=== PATIENT | female | born 1950 | race Caucasian/White ===

== ENCOUNTER 2023-11-11 19:56 | Emergency (ER) | payer OTHER, SELFPAY ==
[2023-11-11 19:57] VITALS: BP 192/117; BMI 29.3
[2023-11-11 21:29] VITALS: BP 146/83
--- NOTE | 2023-11-11 22:35 | ED.GENMED ---
History of Present Illness
General
Chief Complaint: Fall
Source: patient
Time Seen by Provider: 11/11/23 22:12
Travel History
Have you had any contact with someone who has COVID-19?: No
Do you have any symptoms of coronavirus? Fever > 100 degrees, chills, cough, shortness of breath, sore throat, loss of taste or smell, muscle aches, or headache?: No
History of Present Illness
History of Present Illness:
73-year-old female presents to the emergency room for evaluation after suffering a fall. Patient was at a car dealership when she tripped over a step. She fell forward and struck her left face on the trunk of a car. No loss of conscious. No neck
pain. Patient has a skin injury to the left cheek which was bleeding but this was controlled with pressure. She denies any significant headache, nausea, focal weakness numbness or tingling.
Past History
Past History
ED Past Medical History: CAD, Cancer (Breast), HTN, Hypercholesterolemia, NIDDM, Valvular disease, Psychiatric (Depression) and Other (Sciatic, )
ED Past Surgical History: Cardiac (cardiac bypass, Aortic valve replaced, ), Gynecological (Hysterectomy), Orthopedic (Left bunionectomy. left wrist cyst removed, Left shoulder surgery) and Other (cataracts, Right Mastectomy)
Social History
Tobacco: Non-smoker
Alcohol: Occasional
Personal:
Living: with family
Phy Exam
Physical Exam
Physical Exam:
General: Awake, Alert, Oriented X3. No acute distress.
Vitals: unremarkable
Head: Abrasion left cheek with mild surrounding swelling
Eyes: Pupils equal, EOMI
Throat: Airway intact, no exudates
Neck: Trachea midline
Lungs: Clear and equal b/l
Heart: Regular rate, no murmurs
Abd: Soft, Nontender, No pulsatile mass
Neuro: Cranial nerves intact, muscle strength equal bilaterally
Skin: Warm, dry, no rash
Extremities: pulses equal b/l, no edema
Course
Orders/Labs/Results
Orders:
Orders
11/11/23 22:25
CT Head W/o Iv Contrast Urgent
Comment:
Reason For Exam: fall, head injury
11/11/23 22:36
Tetanus/Diphth/Acelpertussis [Adacel] 0.5 ml IM .ONCE ONE
Vital Signs
Initial and Last Documented VS:
Initial Vital Signs
Temp Pulse Resp BP Pulse Ox
98.4 F 98 20 192/117 97
11/11/23 19:57 11/11/23 19:57 11/11/23 19:57 11/11/23 19:57 11/11/23 19:57
Last Documented Vital Signs
Temp Pulse Resp BP Pulse Ox
98.4 F 88 18 146/99 98
11/11/23 19:57 11/11/23 23:41 11/11/23 21:29 11/11/23 23:41 11/11/23 21:29
MDM/Problems Addressed
Differential Diagnosis Includes:
Contusion, concussion, subdural
MDM/Problems Addressed:
CT negative. dt updated. Stable for discharge home.
*Radiology
Radiology exam reviewed: radiology read reviewed
*Critical Care Note
Total Time (30-74mins, 75-104mins- exclusive of procedures): Not Applicable
ED Attending Note
-
Portions of this chart may have been created with voice recognition software.� Occasional wrong word or��sound alike� substitutions may have occurred due to the inherent limitations of voice recognition software.
Discharge Plan
Departure
Patient Disposition: Home (Routine Discharge)
Date of Disposition: 11/11/23
Time of Disposition: 23:13
Patient with high blood pressure during this ER visit?: Yes
Condition: Good
Discharge Problem:
Head injury, acute, Abrasion of face, Contusion of face
Instructions: Head Injury in Adults (DC), Contusion (DC), Skin Abrasions (DC), BLOOD PRESSURE
Prescriptions:
No Action
atorvastatin 80 mg Tablet
80 mg PO HS
ezetimibe 10 mg Tablet
10 mg PO DAILY
metformin 500 mg Tablet
500 mg PO QPM
metformin 1,000 mg Tablet
1,000 mg PO DAILY
letrozole 2.5 mg Tablet
2.5 mg PO HS
venlafaxine 150 mg Tablet Extended Release 24hr
150 mg PO DAILY
Farxiga 10 mg Tablet
10 mg PO DAILY
aspirin 81 mg Tablet,Chewable
81 mg PO DAILY Qty: 0 0RF
Rx Instructions:
Please purchase over the counter
pantoprazole 40 mg Tablet,Delayed Release (Dr/Ec)
40 mg PO DAILY Qty: 30 0RF
Rx Instructions:
GI prophlyaxis w/ Coumadin Take for 30days discuss refills/continuing w/ PCP/Cardiology
oxycodone 5 mg Tablet
5 mg PO Q6HPRN PRN (Reason: moderate-severe pain control) Qty: 28 0RF
Rx Instructions:
Ongoing pain control Attending phys. Dr Rachid Kiser MD
metoprolol succinate 50 mg Tablet Extended Release 24 Hr
50 mg PO DAILY Qty: 60 1RF
acetaminophen 325 mg Tablet
650 mg PO Q4HPRN PRN (Reason: mild pain,headache,temp >101F ) Qty: 0 0RF
Rx Instructions:
Please purchase over the counter
ascorbic acid (vitamin C) [Vitamin C] 500 mg Tablet
1,000 mg PO DAILY Qty: 30 0RF
Rx Instructions:
Take Vitamin C 1000 mg (2 tabs) daily for 30 days and then stop
warfarin 2 mg tablet
5 mg PO MOTU
Rx Instructions:
Begin therapy on 03/12/23 in PM. Take 5 mg daily as directed by provider. Goal INR 2.0-3.0.
warfarin 1 mg tablet
2.5 mg PO .DAISHASU
Rx Instructions:
Begin therapy on 03/12/23 in PM. Take 5 mg daily as directed by provider. Goal INR 2.0-3.0. Dose subject to change
Referrals:
Sho Rivas MD [Family Provider] -
Interventions
Interventions:
*Risk Screen - Suicide Last Done: 11/11/23 19:57
*General Assessment Last Done: 11/11/23 20:13
*Neglect/Abuse Screening Last Done: 11/11/23 19:57
*ED COVID-19 Vaccine History Last Done: 11/11/23 19:57
*Nursing Disposition Last Done: 11/11/23 23:41
ED-Musculoskeletal Assessment Last Done: 11/11/23 20:14
ED- Neurological Assessment Last Done: 11/11/23 20:14
ED-Skin Assessment Last Done: 11/11/23 20:14
Discharge Date and Time
Discharge Date/Time: 11/12/23 00:02
Print Language: POLISH
[2023-11-11] MEDS: ADACEL 0.5 ML IM (22:53)
[2023-11-11 23:09] VITALS: BP 146/99
[2023-11-11 23:41] VITALS: BP 146/99
== END 2023-11-12 00:02 | disposition home or self-care (01) ==
LOC: EMR 19:56
PROVIDERS: EMERGENCY PHYSICIAN Emergency Medicine; FAMILY PHYSICIAN Internal Medicine
DX: S09.90XA Unspecified injury of head, initial encounter (principal); S00.81XA Abrasion of other part of head, initial encounter; S00.83XA Contusion of other part of head, initial encounter; W01.0XXA Fall on same level from slipping, tripping and stumbling without subsequent striking against object, initial encounter; Z23 Encounter for immunization; E11.36 Type 2 diabetes mellitus with diabetic cataract; E78.00 Pure hypercholesterolemia, unspecified; F32.A Depression, unspecified; I10 Essential (primary) hypertension; I25.10 Atherosclerotic heart disease of native coronary artery without angina pectoris; Z85.3 Personal history of malignant neoplasm of breast; Z90.710 Acquired absence of both cervix and uterus; Z95.2 Presence of prosthetic heart valve
CPT/HCPCS: 99284; 90471; 70450; 90715

== ENCOUNTER → 2023-12-16 07:08 | Outpatient (REF) | payer OTHER, SELFPAY | LOC: RCS 07:08 | PROVIDERS: ATTENDING PHYSICIAN Internal Medicine Cardiovascular Disease; FAMILY PHYSICIAN Internal Medicine | DX: Z95.2 Presence of prosthetic heart valve (principal) | CPT/HCPCS: 93306 ==

== ENCOUNTER → 2024-12-07 11:20 | Outpatient (REF) | payer OTHER, SELFPAY | LOC: HWRCS 11:20 | PROVIDERS: ATTENDING PHYSICIAN Internal Medicine Cardiovascular Disease; FAMILY PHYSICIAN Nurse Practitioner | DX: I10 Essential (primary) hypertension (principal) | CPT/HCPCS: 93306 ==

== ENCOUNTER → 2025-01-17 09:54 | Outpatient (REF) | payer OTHER, SELFPAY | LOC: HWRAD 09:54 | PROVIDERS: ATTENDING PHYSICIAN Nurse Practitioner | DX: M79.641 Pain in right hand (principal) | CPT/HCPCS: 73130 ==

== ENCOUNTER → 2025-03-07 09:29 | Outpatient (REF) | payer OTHER, SELFPAY ==
[2025-03-07 12:01] LABS: Hematocrit 48.1 % (37.0-47.0); Hemoglobin 15.9 g/dL (12.0-16.0); Mean Corp Hgb Conc. 33.1 g/dL (33.0-37.0); Mean Corpuscular Volume 84.2 fL (81.0-99.0); Nucleated Red Blood Cells % 0 %; Red Cell Dist. Width 14.4 % (11.5-14.5)
[2025-03-07 12:17] LABS: ALT (SGPT) 23 U/L (0-35); AST (SGOT) 31 U/L (14-36); Albumin 5.2 g/dl (3.5-5.0); Alkaline Phosphatase 120 U/L (38-126); Blood Urea Nitrogen 11 mg/dl (7-17); Calcium 9.8 mg/dl (8.4-10.2); Carbon Dioxide 23 mmol/L (22-30); Chloride 104 mmol/L (98-107); Glucose 111 mg/dl (70-99); HDL Cholesterol 70 mg/dl; LDL Cholesterol, Calculated 125 mg/dl; Potassium 4.1 mmol/L (3.5-5.1); Sodium 138 mmol/L (135-145); Total Protein 8.5 g/dl (6.3-8.2); Very Low Density Lipoprotein 33 mg/dl (0-30); eGFR > 60.00
[2025-03-07 12:27] LABS: Glycohemoglobin (HgbA1c) 6.9 % (4.0-5.6)
[2025-03-07 12:40] LABS: Platelet Count 295 10^3/uL (130-400)
== END ==
LOC: HWLAB 09:29
PROVIDERS: ATTENDING PHYSICIAN Nurse Practitioner
DX: E11.69 Type 2 diabetes mellitus with other specified complication (principal); E78.2 Mixed hyperlipidemia; R79.89 Other specified abnormal findings of blood chemistry
CPT/HCPCS: 36415; 80053; 80061; 83036; 85025